=== PATIENT | male | born 1990 | race Caucasian/White ===

== ENCOUNTER 2016-09-12 08:39 | Emergency (ER) | payer OTHER ==
[~2016-09-12 08:39] MED LIST: KEFLEX500 MG PO; NAPROXEN500 MG PO; ZYRTEC10 M1 PO
[2016-09-12] MEDS ORDERED: NO HOME MEDICATION XX (09:19)
[2016-09-12] MEDS ORDERED: PREDNISONE10 M1 PO (09:25)
== END 2016-09-12 09:44 ==
LOC: EDMED 08:39
DX: L23.7 Allergic contact dermatitis due to plants, except food (principal); Z87.891 Personal history of nicotine dependence